=== PATIENT | male | born 1975 | race Two or more races ===

== ENCOUNTER 2024-09-01 15:01 | Emergency (ER) | payer MEDICAID, SELFPAY ==
[2024-09-01 15:20] VITALS: PULSE 72; RESP 18; O2SAT 99
--- NOTE | 2024-09-01 15:27 | XR_ITS ---
Examination: PA lateral chest 2 views TECHNIQUE: Upright PA lateral chest 2 views Exam date and time: September 01, 2024 1609 hours INDICATIONS: Chest pain coughing beginning 2 days ago FINDINGS: Normal heart size. Lungs are clear. The osseous structures are intact IMPRESSION: No active disease
--- NOTE | 2024-09-01 15:27 | EKG_ITS ---
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
--- NOTE | 2024-09-01 15:37 | EDNOTE_ITS ---
ED General RME/HPI General Chief complaint: Chest Pain Stated complaint: CHEST PAIN Time Seen by Provider: 09/01/24 15:22 Arrival date/time: 09/01/24 15:01 RME / HPI RME / HPI narrative: 49 year old male with known CAD after LHC with planned therapeutic stent to be placed however lost follow up due to moving presents to the ED BIBA for evaluation of pleuritic substernal chest pain beginning after raking leaves at home today. Initially rating as moderate however since arriving to the ED, pain now 2/10. Accompanied by cough and nasal congestion which patient attributes to allergies and recently moving to this area. Denies any associated shortness of breath, sweats, abdominal pain, nausea, or vomiting. Patient mentioned he was previously living in [place]. Admits to using marijuana daily. Denies alcohol use. Review of Systems Review of Systems Narrative Review of Systems: Gen: No fever, no chills, no weight loss EYES: No discharge, no visual changes, no pain HEENT: No ear pain, + congestion, no sore throat PULM: no shortness of breath, +cough CV: + chest pain, no palpitations, no chest tightness GI: No nausea, no vomiting, no diarrhea, no pain, no constipation : No frequency, no urgency,? no dysuria Musc/skel: No joint pain, no back pain Skin: No rash, no ecchymosis, no lesions Psyc: No hallucinations, no depression Heme/Lymph: No easy bleeding or bruising tendencies Neuro: No weakness, no headache ED Exam Narrative Physical exam: GENERAL APPEARANCE: AxOx4, no obvious distress, nontoxic appearing HEENT: NC, AT. MMM. EOMI, clear conjunctiva, oropharynx clear. NECK: Supple without lymphadenopathy. No stiffness or restricted ROM. HEART: Normal rate and regular rhythm, normal S1/S1, no m/r/g LUNGS: CTAB, moving air well. No crackles or wheezes are heard. ABDOMEN: Soft, nontender, nondistended with good bowel sounds heard. BACK: No midline C/T/L spine pain or deformity, No CVAT, no obvious deformity. EXTREMITIES: Without cyanosis, clubbing or edema. MUSCULOSKELETAL: FROM of all major joints, no chest tenderness NEUROLOGICAL: Grossly nonfocal. Alert and oriented, moving all 4 extremities. CN not formally tested but appear grossly intact. Skin: Warm and dry without any rash. Course Course Course Narrative: chest xray ordered to help determine etiology of chest pain. Quality Measures none Orders Category Date Time Status EKG (ED ONLY) *Do not use* NOW Care 09/01/24 15:27 Completed EKG (ED Only) Stat Exams 09/01/24 15:27 Draft XR chest 2V Stat Exams 09/01/24 15:27 Completed CBC Stat Lab 09/01/24 15:40 Completed CMP [Comprehensive Metabolic Panel] Stat Lab 09/01/24 15:40 Completed Troponin I Stat Lab 09/01/24 15:40 Completed Troponin I Stat Lab 09/01/24 18:35 Completed Vital Signs Vital signs: Vital Signs Temperature 98.7 F 09/01/24 15:54 Pulse Rate 71 09/01/24 15:54 Respiratory Rate 18 09/01/24 15:54 Blood Pressure 139/80 H 09/01/24 15:54 Pulse Oximetry (%) 97 09/01/24 15:54 Oxygen Delivery Method Room Air 09/01/24 15:54 Pulse ox is 97% on room air which is adequate. Discharge Plan Plan Patient Disposition: HOME (Self Care) Prescriptions/Referrals Referrals: [facility] [Outside] - In 1 week Problem List Clinical Impression: Chest pain Patient/Caregiver Discharge Instructions Education Materials: ED Chest Pain, Uncertain Cause Additional Instructions: Call to establish a primary care provider, and referral to cardiology. You can return to the emergency department sooner if symptoms worsen or you notice any new or concerning issues. Print Language: Fijian Stand Alone Forms: Elizabeth Award Info., Patient Portal Info Letter
[2024-09-01 15:54] VITALS: BP 139/80; PULSE 71; RESP 18; TEMP 37.1; O2SAT 97
[2024-09-01 16:02] LABS: Basophils % (Auto) 1 % (0-2.5); Eosinophils # (Auto) 0.1 Thou/mm3 (0.0-0.5); Eosinophils % (Auto) 2 % (0-10); Hematocrit 40.9 % (41.0-53.0); Hemoglobin 13.7 g/dL (13.5-16.0); Immature Granulocytes % (Auto) 0 % (0-0); Immature Granulocytes Auto 0.02 Thou/mm3 (0.00-0.00); Lymphocytes # (Auto) 1.5 Thou/mm3 (1.0-4.8); Lymphocytes % (Auto) 23 % (10-50); Mean Corpuscular HGB Conc 33.5 g/dl (31.0-37.0); Mean Corpuscular Hemoglobin 31.3 pg (25.0-35.0); Mean Corpuscular Volume 93 fL (80-100); Monocytes # (Auto) 0.8 Thou/mm3 (0.0-0.8); Monocytes % (Auto) 12 % (0-12); Neutrophils # (Auto) 3.9 Thou/mm3 (1.8-7.7); Neutrophils % (Auto) 62 % (37-80); Nucleated Red Blood Cell % 0 /100 WBC (0); Platelet Count 244 Thou/mm3 (140-440); Red Blood Count 4.38 Miln/mm3 (4.50-5.90); White Blood Count 6.4 Thou/mm3 (3.8-10.6)
[2024-09-01 16:19] LABS: Alanine Aminotransferase 25 U/L (10-49); Albumin, Serum 4.3 gm/dL (3.5-5.0); Albumin/Globulin Ratio 1.5 (1.2-2.2); Alkaline Phosphatase 76 U/L (46-116); Anion Gap 6 (7-16); Aspartate Amino Transferase 35 U/L (0-34); BUN/Creatinine Ratio 8 Ratio (12-20); Bilirubin,Total 0.5 mg/dL (0.3-1.2); Blood Urea Nitrogen 9 mg/dL (9-23); Calcium 8.4 mg/dL (8.3-10.6); Calcium (Corrected) 8.4 mg/dL (8.5-10.1); Carbon Dioxide 28.2 mMol/L (20.0-31.0); Chloride 107 mMol/L (98-107); Creatinine (Component) 1.1 mg/dL (0.6-1.3); Globulin 2.9 gm/dL (2.3-3.5); Glucose 94 mg/dL (74-106); Osmolality,Calculated 279 (275-295); Potassium 3.1 mMol/L (3.4-5.1); Sodium 141 mMol/L (136-145); Total Protein 7.2 gm/dL (5.7-8.2); Troponin I < 0.020 ng/mL (0.0-0.045); eGFR > 60 See Note
[2024-09-01 17:03] VITALS: BMI 40.0
[2024-09-01 19:14] LABS: Troponin I < 0.020 ng/mL (0.0-0.045)
== END 2024-09-01 18:05 | disposition home or self-care (01) ==
PROVIDERS: Emergency Provider Emergency Medicine
DX: R07.2 Precordial pain (principal); I25.10 Atherosclerotic heart disease of native coronary artery without angina pectoris
CPT/HCPCS: 36415; 71046; 80053; 84484; 85025; 93005; 99283